=== PATIENT | male | born 1990 | race African-American/Black ===

== ENCOUNTER 2017-11-11 15:00 | Emergency (ER) | payer BC ==
[~2017-11-11] VITALS: Ht 170.2 cm; Wt 87.3 kg
[2017-11-11 15:05] VITALS: BP 140/71; TEMP 98.9
[2017-11-11] MEDS ORDERED: PREDNISONE20 MG PO (17:16)
[2017-11-11 17:32] VITALS: PULSE 88
== END 2017-11-11 17:30 | disposition home or self-care (01) ==
LOC: COL.ER 15:00
DX: T78.40XA Allergy, unspecified, initial encounter (principal)
CPT/HCPCS: J7512